=== PATIENT | female | born 1985 | race Caucasian/White ===

== ENCOUNTER 2023-09-08 14:30 | Emergency (ER) | payer BC ==
[~2023-09-08] VITALS: Ht 170.2 cm; Wt 95.2 kg
[2023-09-08] MEDS ORDERED: NS 1,000 ML IV SCH (15:35)
[2023-09-08] MEDS ORDERED: Nexium40 MG PO (15:39)
[2023-09-08] MEDS ORDERED: [UNRECOGNIZED DRUG - CODE] PO (15:39)
[2023-09-08] MEDS ORDERED: MAGNESIUM GLU27.5 M1 PO (15:40)
[2023-09-08] MEDS ORDERED: ELIQUIS5 M2 PO (15:40)
[2023-09-08] MEDS ORDERED: DIAZ5 PO (15:41)
[2023-09-08] MEDS ORDERED: MECL25 PO (15:41)
[2023-09-08] MEDS ORDERED: TRAZ50 PO (15:42)
[2023-09-08] MEDS ORDERED: VALA500 PO (15:42)
[2023-09-08 15:54] LABS: BASOPHILS ABSOLUTE AUTO 0.02 K/mm3 (0.00-0.23); BASOPHILS PERCENT AUTO 0 % (0-2); EOSINOPHILS ABSOLUTE AUTO 0.15 K/mm3 (0.00-0.68); EOSINOPHILS PERCENT AUTO 2 % (0-6); Hematocrit 37.9 % (33.0-51.0); Hemoglobin 12.9 g/dL (11.5-16.0); IMMATURE GRAN ABSOLUTE AUTO 0.04 K/mm3 (0.00-0.10); IMMATURE GRAN PERCENT AUTO 1 % (0-1); LYMPHOCYTES ABSOLUTE AUTO 2.22 K/mm3 (0.84-5.20); LYMPHOCYTES PERCENT AUTO 26 % (21-46); MONOCYTES ABSOLUTE AUTO 0.56 K/mm3 (0.16-1.47); MONOCYTES PERCENT AUTO 6 % (4-13); Mean Corpuscular HGB 28.9 pg (26.0-34.0); Mean Corpuscular Volume 85 fL (80-100); Mean Platelet Volume 9.7 fL (9.1-12.4); NEUTROPHILS ABSOLUTE AUTO 5.72 K/mm3 (1.96-9.15); NEUTROPHILS PERCENT AUTO 66 % (41-73); Platelet Count 294 K/mm3 (150-400); RDW Coefficient Variation 12.9 % (11.7-14.2); RDW Standard Deviation 39.5 fL (35.1-46.3); Red Blood Cell Count 4.47 M/mm3 (3.80-5.20); White Blood Cell Count 8.71 K/mm3 (4.00-11.30)
[2023-09-08 16:11] LABS: Albumin, Blood 3.7 g/dL (3.4-5.0); Bilirubin, Total 0.2 mg/dL (0.1-1.0); Bun/Creatinine Ratio 11.8 (12.0-20.0); Calcium, Blood 8.7 mg/dL (8.5-10.1); Creatinine, Blood 0.85 mg/dL (0.40-1.00); Globulin, Blood 3.6 g/dL (2.2-4.0); Potassium, Blood 4.1 mmol/L (3.5-5.5); Total Protein, Blood 7.3 g/dL (6.4-8.2)
[2023-09-08] MEDS ORDERED: Prochlorperazine Edisylate 10 mg Vial IV ONE (16:50)
== END 2023-09-08 18:03 | disposition home or self-care (01) ==
LOC: ER 14:30
PROVIDERS: Physician Assistant
DX: E86.0 Dehydration (principal); G43.909 Migraine, unspecified, not intractable, without status migrainosus; Z79.01 Long term (current) use of anticoagulants; Z79.899 Other long term (current) drug therapy
CPT/HCPCS: 70450; 80053; 83735; 84703; 85025; 93005; 93010; 96361; 96374; 99284-25; J0780; J7030